=== PATIENT | male | born 1990 | race Caucasian/White ===

== ENCOUNTER 2022-10-18 10:26 | Emergency (ER) | payer SELFPAY ==
[~2022-10-18] VITALS: Ht 175.3 cm; Wt 92.9 kg
--- NOTE | 2022-10-18 10:30 | ED Chest Pain ---
General Stated Complaint: CHEST PAIN Source: patient, EMS Exam Limitations: no limitations History of Present Illness Date Seen by Provider: Oct 18, 2022 Time Seen by Provider: 10:30 Initial Comments 32-year-old male brought in by EMS for chest pain. 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 He then got out was walking to class and pain worsened. He describes as pressure in his mid central chest with radiation to bilateral shoulders. He states he got a little clammy at the outset but this resolved quickly. No nausea or vomiting. He had a few panic attacks a couple of years ago but does not recall really what those were like and does not know if this is similar in nature. Denies any fevers or chills, recent cough. No unilateral lower extremity pain, swelling. No history of cardiac disease. All other systems reviewed and negative except documented per HPI. Voice recognition software was used to help create this chart Allergies and Home Medications Allergies Coded Allergies: varenicline (Verified Allergy, Unknown, 10/18/22) Patient Home Medication List Home Medication List Reviewed: Yes Review of Systems Review of Systems Constitutional: see HPI Past [id number]-Huhcxb Hx Patient Social History Tobacco Use?: No Use of E-Cig and/or Vaping dev: No Substance use?: No Alcohol Use?: No Past Medical History Surgery/Hospitalization HX: Anxiety, depression Physical Exam Vital Signs Vital Signs - First Documented 10/18/22 10:28 Temp 37.2 Pulse 80 Resp 20 B/P (MAP) 150/89 (109) Pulse Ox 95 O2 Delivery Room Air Capillary Refill : Height, Weight, BMI Height: '" Weight: lbs. oz. kg; BMI Method: General Appearance: No Apparent Distress, WD/WN HEENT: Normal ENT Inspection, Pharynx Normal Neck: Normal Inspection, Non Tender, Supple Respiratory: Chest Non Tender, Lungs Clear, Normal Breath Sounds, No Accessory Muscle Use, No Respiratory Distress Cardiovascular: Regular Rate, Rhythm, No Murmur, Normal Peripheral Pulses Gastrointestinal: Normal Bowel Sounds, No Organomegaly, No Pulsatile Mass, Non Tender, Soft Extremity: Normal Capillary Refill, Normal Inspection, Normal Range of Motion, Non Tender, No Calf Tenderness, No Pedal Edema Neurologic/Psychiatric: Alert, Oriented x3, Normal Mood/Affect Skin: Normal Color, Warm/Dry Lymphatic: No Adenopathy Progress/Results/Core Measures Results/Orders Lab Results Laboratory Tests Test 10/18/22 10:33 10/18/22 12:00 Range/Units White Blood Count 8.3 4.3-11.0 10^3/uL Red Blood Count 5.47 4.30-5.52 10^6/uL Hemoglobin 16.8 13.3-17.7 g/dL Hematocrit 48 40-54 % Mean Corpuscular Volume 89 80-99 fL Mean Corpuscular Hemoglobin 31 25-34 pg Mean Corpuscular Hemoglobin Concent 35 32-36 g/dL Red Cell Distribution Width 11.9 10.0-14.5 % Platelet Count 185 130-400 10^3/uL Mean Platelet Volume 11.2 9.0-12.2 fL Immature Granulocyte % (Auto) 0 % Neutrophils (%) (Auto) 56 42-75 % Lymphocytes (%) (Auto) 37 12-44 % Monocytes (%) (Auto) 6 0-12 % Eosinophils (%) (Auto) 1 0-10 % Basophils (%) (Auto) 0 0-10 % Neutrophils # (Auto) 4.6 1.8-7.8 10^3/uL Lymphocytes # (Auto) 3.0 1.0-4.0 10^3/uL Monocytes # (Auto) 0.5 0.0-1.0 10^3/uL Eosinophils # (Auto) 0.1 0.0-0.3 10^3/uL Basophils # (Auto) 0.0 0.0-0.1 10^3/uL Immature Granulocyte # (Auto) 0.0 0.0-0.1 10^3/uL Sodium Level 139 135-145 MMOL/L Potassium Level 3.6 3.6-5.0 MMOL/L Chloride Level 102 98-107 MMOL/L Carbon Dioxide Level 25 21-32 MMOL/L Anion Gap 12 5-14 MMOL/L Blood Urea Nitrogen 11 7-18 MG/DL Creatinine 0.86 0.60-1.30 MG/DL Estimat Glomerular Filtration Rate 119 BUN/Creatinine Ratio 13 Glucose Level 103 70-105 MG/DL Calcium Level 9.5 8.5-10.1 MG/DL Corrected Calcium 9.2 8.5-10.1 MG/DL Total Bilirubin 0.4 0.1-1.0 MG/DL Aspartate Amino Transf (AST/SGOT) 21 5-34 U/L Alanine Aminotransferase (ALT/SGPT) 40 0-55 U/L Alkaline Phosphatase 52 40-136 U/L Troponin I < 0.028 <0.028 NG/ML Total Protein 7.7 6.4-8.2 GM/DL Albumin 4.4 3.2-4.5 GM/DL My Orders Orders - MIESHA COWAN DO Cbc With Automated Diff (10/18/22 10:48) Chest 1 View, Ap/Pa Only (10/18/22 10:48) Comprehensive Metabolic Panel (10/18/22 10:48) O2 (10/18/22 10:48) Monitor-Rhythm Ecg Trace Only (10/18/22 10:48) Troponin I Alexi (10/18/22 10:48) Troponin I Alexi (10/18/22 11:52) Vital Signs/I&O 10/18/22 10:28 Temp 37.2 Pulse 80 Resp 20 B/P (MAP) 150/89 (109) Pulse Ox 95 O2 Delivery Room Air Comment EKG shows sinus rhythm with a rate of 68 bpm. Normal intervals. Normal axis. There is concave like ST elevation in lead II and aVF, V6 consistent with early repolarization. No concerning ST elevation, no STEMI. Departure Communication (Admissions) The patient is feeling much better after period of observation. His vital signs remained stable. Heart score is 2. There is no risk factor for DVT, PE. 2 sets of cardiac enzymes are negative. EKG is nonischemic. Chest x-ray is normal on my independent review. Patient is discharged in stable condition with supportive care and close follow-up. Impression Primary Impression: Atypical chest pain Disposition: 01 HOME, SELF-CARE Condition: Stable Departure-Patient Inst. Patient Instructions: Chest Pain That Is Not Caused by the Heart (DC) Add. Discharge Instructions: 2 sets of heart enzymes are negative. The electrical tracing of your heart is normal. Your chest x-ray is normal as well. Should your symptoms persist I recommend you follow-up with your primary doctor. Return to the emergency department for any severe concerns. MIESHA COWAN DO Oct 18, 2022 10:30
[2022-10-18 10:55] LABS: BASOPHILS % (AUTO) 0 % (0-10); EOSINOPHILS # (AUTO) 0.1 10^3/uL (0.0-0.3); EOSINOPHILS % (AUTO) 1 % (0-10); HEMATOCRIT 48 % (40-54); HEMOGLOBIN 16.8 g/dL (13.3-17.7); LYMPHOCYTES % (AUTO) 37 % (12-44); MEAN CORPUSCULAR HEMOGLOBIN 31 pg (25-34); MEAN CORPUSCULAR HGB CONC 35 g/dL (32-36); MEAN CORPUSCULAR VOLUME 89 fL (80-99); MEAN PLATELET VOLUME 11.2 fL (9.0-12.2); MONOCYTES # (AUTO) 0.5 10^3/uL (0.0-1.0); MONOCYTES % (AUTO) 6 % (0-12); NEUTROPHILS # (AUTO) 4.6 10^3/uL (1.8-7.8); NEUTROPHILS % (AUTO) 56 % (42-75); PLATELET COUNT 185 10^3/uL (130-400); WHITE BLOOD COUNT 8.3 10^3/uL (4.3-11.0)
[2022-10-18 11:04] LABS: ALBUMIN 4.4 GM/DL (3.2-4.5); POTASSIUM 3.6 MMOL/L (3.6-5.0)
[2022-10-18 11:05] LABS: CALCIUM 9.5 MG/DL (8.5-10.1)
[2022-10-18 11:07] LABS: TOTAL PROTEIN 7.7 GM/DL (6.4-8.2)
[2022-10-18 11:08] LABS: BILIRUBIN,TOTAL 0.4 MG/DL (0.1-1.0)
--- NOTE | 2022-10-18 11:09 | Diagnostic Imaging Report ---
INDICATION: Chest pain. Frontal chest obtained at 11:02 a.m. FINDINGS: Heart and mediastinal silhouette are normal in appearance. The lungs are clear. There is no pneumothorax or pleural fluid. IMPRESSION: Negative chest. Dictated by: Dictated on workstation # [id number]
[2022-10-18 11:10] LABS: CREATININE SERUM 0.86 MG/DL (0.60-1.30)
[2022-10-18 13:35] VITALS: BP 114/82
== END 2022-10-18 13:37 | disposition home or self-care (01) ==
LOC: ER 10:27
DX: R07.89 Other chest pain (principal)
CPT/HCPCS: 36415; 71045; 80053; 84484; 85025; 93041

== ENCOUNTER 2022-11-19 07:49 | Emergency (ER) | payer MEDICARE ==
[~2022-11-19] VITALS: Ht 175 cm; Wt 91.6 kg
[2022-11-19] MEDS ORDERED: NS IV 1000 ML 1,000 ML IV STA (08:13)
[2022-11-19] MEDS ORDERED: diphenhydrAMINE 50 MG/ML INJ (BENADRYL) IV STA (08:13)
[2022-11-19] MEDS ORDERED: KETOROLAC 30 MG/ML VIAL IVP STA (08:13)
[2022-11-19] MEDS ORDERED: PROMETHAZINE INJ 25 MG/ML (PHENERGAN) AMP IVP ONE (08:15)
--- NOTE | 2022-11-19 08:33 | ED Headache ---
General Chief Complaint: Head/Cervical Problems Stated Complaint: MIGRAINE Nursing Triage Note: pt presents to ed with complaints of migraine starting this am. 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 Source: patient Exam Limitations: no limitations History of Present Illness Date Seen by Provider: November 19, 2022 Time Seen by Provider: 08:03 Initial Comments Here with report of headache that he describes as a migraine that has pressure to the top of his head. Has associated nausea with this. He took ibuprofen several hours ago and that has not helped. 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 He works for [employer]. He came here because this was the nearest facility. Last time he had a migraine like this was about 3 years ago but he does occasionally get these. Dates this is in character with previous migraines. Denies recent injury or upper respiratory illness, fever or infection symptoms. Denies shortness of breath or chest pain. He has not vomited. He drove to the emergency department. Timing/Duration: 4-6 hours Severity/Quality: moderate Location: occipital Prior Headaches/Recent Trauma: occasional headaches Modifying Factors: worse with exposure to light; improves with rest Associated Symptoms: No confusion, No fever/chills, No nasal congestion, No sinus infection, No vision changes Allergies and Home Medications Allergies Coded Allergies: varenicline (Verified Allergy, Unknown, 10/18/22) Patient Home Medication List Home Medication List Reviewed: Yes Review of Systems Review of Systems Constitutional: no symptoms reported Eyes: See HPI Ears, Nose, Mouth, Throat: no symptoms reported Respiratory: No cough, No short of breath Cardiovascular: No chest pain, No edema Gastrointestinal: nausea; No vomiting Psychiatric/Neurological: Headache; Denies Weakness Past Qgqxhfv-[id number]-Lxodep Hx Patient Social History Tobacco Use?: No Smoking Status: Former Smoker Substance use?: No Alcohol Use?: No Pt feels they are or have been: No Past Medical History Surgery/Hospitalization HX: Anxiety, depression Neurological: Yes Headaches /Migraines Family Medical History No Pertinent Family Hx Physical Exam Vital Signs Vital Signs - First Documented 11/19/22 08:03 Temp 36.4 Pulse 86 Resp 16 B/P (MAP) 139/77 (97) Pulse Ox 97 Capillary Refill : Less Than 3 Seconds Height, Weight, BMI Height: '" Weight: lbs. oz. kg; 29.00 BMI Method: General Appearance: WD/WN, mild distress HEENT: PERRL/EOMI, pharynx normal Neck: non-tender, full range of motion, supple, normal inspection Cardiovascular: regular rate, rhythm, no murmur Respiratory: lungs clear, normal breath sounds Gastrointestinal: non tender, soft Psychiatric: alert, oriented x 3 Crainal Nerves: normal hearing, normal speech, PERRL Coordination/Gait: normal gait Motor/Sensory: no motor deficit Skin: normal color, warm/dry Progress/Results/Core Measures Results/Orders My Orders Orders - LIDIA BASS MD Iv 1000 Ml (Sodium Chloride 0.9%) (11/19/22 08:13) Ed Iv/Invasive Line Start (11/19/22 08:13) Diphenhydramine Injection (Benadryl Inje (11/19/22 08:13) Ketorolac Injection (Toradol Injection) (11/19/22 08:13) Promethazine Injection (Phenergan Injec (11/19/22 08:15) Dexamethasone Injection (Decadron Inje (11/19/22 08:30) Hydromorphone Injection (Dilaudid Inject (11/19/22 09:30) Medications Given in ED Current Medications Medications Dose Ordered Sig/Roma Route Start Time Stop Time Status Last Admin Dose Admin Dexamethasone Sodium Phosphate 10 mg ONCE ONCE IV 11/19/22 08:30 11/19/22 08:31 DC 11/19/22 08:30 10 MG Hydromorphone HCl 0.5 mg ONCE ONCE IV 11/19/22 09:30 11/19/22 09:31 DC 11/19/22 09:28 0.5 MG Promethazine HCl 25 mg ONCE ONCE IVP 11/19/22 08:15 11/19/22 08:16 DC 11/19/22 08:23 25 MG Vital Signs/I&O 11/19/22 08:03 Temp 36.4 Pulse 86 Resp 16 B/P (MAP) 139/77 (97) Pulse Ox 97 Blood Pressure Mean: 97 Progress Progress Note : Progress Note Seen and evaluated. IV, Phenergan 25 mg IV, Benadryl 25 mg IV, Toradol 30 mg IV and Decadron 10 mg IV ordered. Normal saline 1 L bolus ordered. Patient states within typical of his migraine so we will treat as such initially and see if we can get improvement. Patient agreed to plan. Monitor patient. Differential diagnosis fluids migraine, status migraine, tension headache 0930: Pain is a little better although not resolved. We will go ahead and initiate Dilaudid 0.5 mg IV while fluids continue. Monitor patient. 1140: Headache much better. He feels comfortable going home. He has ride coming to pick him up. Discharged home with return precautions. Patient verbalized understanding instructions and agreement with plan. Departure Impression Primary Impression: Migraine Qualified Codes: G43.009 - Migraine without aura, not intractable, without status migrainosus Disposition: HOME, SELF-CARE Condition: Improved Departure-Patient Inst. Decision time for Depature: 11:48 Referrals: NO,LOCAL PHYSICIAN (PCP/Family) Primary Care Physician Patient Instructions: Migraines (DC) Add. Discharge Instructions: All discharge instructions reviewed with patient and/or family. Voiced understanding. He may continue Tylenol/acetaminophen 1000 mg every 6-8 hours as needed for pain as well as ibuprofen 600 mg every 8 hours as needed for pain. Drink plenty of fluids and get plenty of rest. Follow-up with your doctor for recheck and further evaluation. Return for worse pain, fever, vomiting, weakness, breathing problems or other concerns as needed. LIDIA BASS MD November 19, 2022 08:33
[2022-11-19] MEDS ORDERED: HYDROmorphone 2 MG/ML VIAL (DILAUDID) IV ONE (09:30)
[2022-11-19] MEDS ORDERED: ONDA4TAB11 SL (12:00)
[2022-11-19 12:02] VITALS: BP 132/70
== END 2022-11-19 12:01 | disposition home or self-care (01) ==
LOC: EDUNIT# 07:49 → ER 07:54
DX: G43.909 Migraine, unspecified, not intractable, without status migrainosus (principal); Z87.891 Personal history of nicotine dependence; Z28.310 Unvaccinated for COVID-19